=== PATIENT | female | born 1980 | race African-American/Black ===

== ENCOUNTER 2017-07-12 02:12 | Emergency (ER) | payer BC ==
[2017-07-12] MEDS: DEXAMETHASONE 4 MG TABLET PO (03:18)
[2017-07-12] MEDS: IBUPROFEN 600 MG TABLET. PO (03:18)
[2017-07-12] MEDS: HYDROcodone/APAP 5/325MG 1 TAB TABLET PO (03:19)
[2017-07-12] MEDS: ACETAMINOPHEN 500 MG TABLET PO (03:19)
[2017-07-12] MEDS: PENICILLIN G BENZATHINE LA 1,200,000 UNIT/2 ML DISP.SYRIN. IM (03:26)
[2017-07-12 07:26] LABS: NEGATIVE OBC STREP NEG; POSITIVE OBC STREP POS
== END 2017-07-12 03:31 | disposition home or self-care (01) ==
LOC: ER 02:12
DX: J03.00 Acute streptococcal tonsillitis, unspecified (principal); Z90.49 Acquired absence of other specified parts of digestive tract; Z98.51 Tubal ligation status
CPT/HCPCS: 87880; 96372; 99284; J0561; J8540